=== PATIENT | male | born 1995 | race African-American/Black ===

== ENCOUNTER 2019-10-13 02:37 | Emergency (ER) | payer SELFPAY ==
[~2019-10-13] VITALS: Ht 175.3 cm; Wt 63.6 kg
[2019-10-13 03:29] LABS: BASO % 0.2 % (0.0-1.0); EOS # 0.2 10^3/uL (0.0-0.5); EOS % 1.8 % (0.0-3.0); HEMATOCRIT 43.6 % (42.0-52.0); HEMOGLOBIN 13.6 g/dl (13.5-17.5); LYMPH # 1.7 10^3/uL (1.5-5.0); LYMPH % 19.2 % (24.0-44.0); MEAN CORPUSCULAR HGB CONC 31.2 g/dl (32.0-36.5); MEAN CORPUSCULAR VOLUME 86.7 fl (80.0-96.0); MONO # 0.5 10^3/uL (0.0-0.8); MONO % 6.1 % (0.0-5.0); NEUTROPHILS # 6.3 10^3/uL (1.5-8.5); NEUTROPHILS % 72.5 % (36.0-66.0); PLATELET COUNT, AUTOMATED 108 10^3/uL (150-450); RED BLOOD COUNT 5.03 10^6/uL (4.30-6.10); WHITE BLOOD COUNT 8.7 10^3/uL (4.0-10.0)
[2019-10-13 03:57] LABS: ALBUMIN 4.1 GM/DL (3.2-5.2); ALT/SGPT 20 U/L (12-78); BILIRUBIN,DIRECT 0.1 MG/DL (0.0-0.2); BILIRUBIN,TOTAL 0.5 MG/DL (0.2-1.0); BLOOD UREA NITROGEN 8 MG/DL (7-18); CALCIUM LEVEL 8.7 MG/DL (8.5-10.1); CARBON DIOXIDE LEVEL 28 MEQ/L (21-32); CHLORIDE LEVEL 106 MEQ/L (98-107); CREATININE FOR GFR 1.05 MG/DL (0.70-1.30); GLOMERULAR FILTRATION RATE > 60.0 (>60); GLUCOSE, FASTING 126 MG/DL (70-100); LIPASE 36 U/L (73-393); POTASSIUM SERUM 3.8 MEQ/L (3.5-5.1); SODIUM LEVEL 142 MEQ/L (136-145); TOTAL PROTEIN 8.3 GM/DL (6.4-8.2)
[2019-10-13] MEDS ORDERED: KETOROLAC 30 MG/ML VIAL (J1885) IV ONE (05:45)
[2019-10-13] MEDS ORDERED: ONDANSETRON 4MG/2ML VIAL (J2405) IV ONE (05:45)
--- NOTE | 2019-10-13 06:08 | REPVR ---
PROCEDURE INFORMATION: Exam: CT Abdomen And Pelvis Without Contrast Exam date and time: 10/13/2019 5:50 AM Age: 24 years old Clinical history: Abdominal pain; Flank; Right; Additional info: Right renal colic TECHNIQUE: Imaging protocol: Computed tomography of the abdomen and pelvis without contrast. Radiation optimization: All CT scans at this facility use at least one of these dose optimization techniques: automated exposure control; mA and/or kV adjustment per patient size (includes targeted exams where dose is matched to clinical indication); or iterative reconstruction. COMPARISON: No relevant prior studies available. FINDINGS: Liver: Normal. No mass. Gallbladder and bile ducts: Normal. No calcified stones. No ductal dilation. Pancreas: Normal. No ductal dilation. Spleen: Normal. No splenomegaly. Adrenals: Normal. No mass. Kidneys and ureters: Minimal nonobstructing bilateral renal calculi. Stomach and bowel: Rectal wall thickening with perirectal induration. Appendix: A normal appendix is seen. Intraperitoneal space: Unremarkable. No free air. No significant fluid collection. Vasculature: Unremarkable. No abdominal aortic aneurysm. Lymph nodes: Unremarkable. No enlarged lymph nodes. Bladder: Unremarkable as visualized. Reproductive: Unremarkable as visualized. Bones/joints: Unremarkable. No acute fracture. Soft tissues: Unremarkable. IMPRESSION: 1. Minimal nonobstructing bilateral renal calculi. No ureteral calculi are evident and there is no evidence of obstructive uropathy. 2. Rectal wall thickening with perirectal induration suggesting nonspecific distal colitis or proctitis. 3. Otherwise negative CT abdomen/pelvis. Electronically signed by: Flaco Canseco On 10/13/2019 06:08:22 AM
[2019-10-13 06:38] VITALS: BP 126/72
--- NOTE | 2019-10-13 13:25 | ED PDOC ---
Post-Departure Follow-Up certified letter faxed to pt re formal read of ct abd/p - in regards to rectal a christophe. please find pcp name and fax. if no pcp refer to [facility] and fax.Virgil Dsouza MD Oct 13, 2019 13:24
== END 2019-10-13 06:40 | disposition home or self-care (01) ==
LOC: M ED 02:37
DX: R10.9 Unspecified abdominal pain (principal); R31.29 Other microscopic hematuria; F17.200 Nicotine dependence, unspecified, uncomplicated
CPT/HCPCS: 74176; 80048; 80076; 81001; 83690; 85025; 96374; 96375; 99284; J1885; J2405

== ENCOUNTER 2019-12-09 18:55 | Emergency (ER) | payer SELFPAY ==
[~2019-12-09] VITALS: Ht 180.3 cm; Wt 81.8 kg
[2019-12-09 18:55] VITALS: BP 125/77
[2019-12-09] MEDS ORDERED: AUGM875T28 PO (19:29)
[2019-12-09] MEDS ORDERED: AUGMENTIN 875 MG TAB PO ONE (19:30)
== END 2019-12-09 19:41 | disposition home or self-care (01) ==
LOC: M ED 18:55
DX: K08.89 Other specified disorders of teeth and supporting structures (principal); K02.9 Dental caries, unspecified; K03.81 Cracked tooth